=== PATIENT | female | born 1985 | race Hispanic/Latino ===

== ENCOUNTER 2025-04-11 08:28 | Emergency (ER) | payer OTHER ==
[~2025-04-11] VITALS: Ht 160 cm; Wt 75.6 kg
[2025-04-11] MEDS: IBUPROFEN 600 MG TAB PO ONE (12:22)
[2025-04-11 12:36] VITALS: BP 121/63; TEMP 98.9; O2SAT 100
== END 2025-04-11 12:40 | disposition home or self-care (01) ==
LOC: M ED 08:28 → EDBD 08:28 → M ED 12:40
DX: S20.211A Contusion of right front wall of thorax, initial encounter (principal); Y92.9 Unspecified place or not applicable; Y93.9 Activity, unspecified; Y99.9 Unspecified external cause status; V49.40XA Driver injured in collision with unspecified motor vehicles in traffic accident, initial encounter; E11.9 Type 2 diabetes mellitus without complications; Z91.040 Latex allergy status